=== PATIENT | male | born 1995 | race Caucasian/White ===

== ENCOUNTER 2016-08-31 16:07 | Emergency (ER) | payer SELFPAY ==
[~2016-08-31] VITALS: Ht 165.1 cm; Wt 61.3 kg
[2016-08-31 16:24] VITALS: BP 137/67; PULSE 60; RESP 18; TEMP 98.7; O2SAT 99
--- NOTE | 2016-08-31 16:30 | PD ---
HPI . Nail through the left index finger Chief Complaint: Injury Time Seen by Provider: 16:30 Travel History International Travel<30 days: No Contact w/Intl Traveler<30days: No Traveled to known affect area: No History of Present Illness HPI 20-year-old male who speaks Eritrean accompanied by his friend here with complaints of accidentally hammering a nail through his left index finger, while working on a roof. Patient admits to increased pain in that digit. He denies any other pain. He has no significant past medical history or other complaints. He does not have a primary care provider. Tetanus up to date, received last year per patient. [facility] Past Medical History Medical History: Denies Significant Hx Social History Tobacco Use: No Allergies-Medications (Allergen,Severity, Reaction): Coded Allergies: No Known Allergies (Unverified , 08/31/16) Reported Meds & Prescriptions Reported Meds & Active Scripts Active Bactrim DS (Sulfamethoxazole-Trimethoprim) 800-160 Mg Tab 1 Tab PO BID Review of Systems General / Constitutional: No: Fever Eyes: No: Visual changes HENT: No: Headaches Cardiovascular: No: Chest Pain or Discomfort Respiratory: No: Shortness of Breath Gastrointestinal: No: Abdominal Pain Genitourinary: No: Dysuria Musculoskeletal: Positive: Pain (left index ) Skin: No Rash Neurologic: No: Weakness Psychiatric: No: Depression Endocrine: No: Polydipsia Hematologic/Lymphatic: No: Easy Bruising Physical Exam Narrative GENERAL: AAO x 3, no acute distress, Well-nourished, well-developed patient. SKIN: Warm and dry. No visible rashes or bruising. Left index finger with appoximately 1 inch nail through the distal tuft, HEAD: Normocephalic and atraumatic. EYES: No scleral icterus. No injection or drainage. ENT: No nasal drainage noted. Mucous membranes pink. Airway patent. NECK: Supple, trachea midline. No JVD. CARDIOVASCULAR: Regular rate and rhythm without murmurs, gallops, or rubs. RESPIRATORY: Breath sounds equal bilaterally. No accessory muscle use. No rhonchi or rales. GASTROINTESTINAL: Abdomen soft, non-tender, nondistended. EXTREMITIES: No cyanosis or edema. Tenderness to the left index finger. BACK: Nontender without obvious deformity. No CVA tenderness. PSYCH: AAO x 3, normal affect. Consent given by patient. Area cleaned with betadine and saline solution. Nail removal from left distal finger. 2% lidocaine used to digitally block the index finger. Nail was removed using pliers and opposing force. Patient tolerated without incident. Data Data Last Documented VS Vital Signs Date Time Temp Pulse Resp B/P Pulse Ox O2 Delivery O2 Flow Rate FiO2 08/31/16 16:24 98.7 60 18 137/67 99 Orders Lidocaine 2% Inj (Xylocaine 2% Inj) (08/31/16 16:45) Hand, Complete ([id number]) (08/31/16 17:09) Wound Care (08/31/16 17:56) Splint Or Brace Apply/Monitor (08/31/16 17:56) Mandatory Outpatient Referral (08/31/16 18:11) Fiberglass Splint Forearm Adul (08/31/16 ) [facility] Medical Decision Making Medical Screen Exam Complete: Yes Emergency Medical Condition: Yes Medical Record Reviewed: Yes (no prior visit) Differential Diagnosis fb to finger, fracture, laceration Narrative Course 20-year-old male who speaks Eritrean accompanied by his friend here with complaints of accidentally hammering a nail through his left index finger, while working on a roof. Patient admits to increased pain in that digit. He denies any other pain. He has no significant past medical history or other complaints. He does not have a primary care provider. Patient seen and examined. I provided a digital block with 2% lidocaine. With assistance from the pipeline technician I was able to remove the nail from the distal tuft. Patient tolerated without incident. We will proceed with x-ray of the left hand. I have already discussed this case with Dr. Ascencio, who will follow the patient in his office. Wound was copiously irrigated and explored. Sterile dressing was applied. I will cover him with Bactrim. Patient was advised to f/u with Dr. Ascencio. Information provided to patient. Patient verbalized understanding of instructions, questions were answered, and thanked me for their care. I advised them if their condition worsens, please return to the nearest emergency room for further care. Procedures Procedure Narrative Consent given by patient. Area cleaned with betadine and saline solution. Nail removal from left distal finger. 2% lidocaine used to digitally block the index finger. Nail was removed using pliers and opposing force. Patient tolerated without incident. Diagnosis Primary Impression: Open fracture of distal phalangeal tuft with delayed healing Referrals: Lee Ann Ascencio MD Patient Instructions: Finger Fracture (ED), General Instructions Additional Instructions: Please return to emergency department if your symptoms return or worsen. Follow up with your primary care provider. Take medications as prescribed. You will need to follow-up with hand surgery. We have provided you with his information. His name is Doctor Lee Ann Ascencio. Please call his office for an appointment. If you do not follow up as recommended, you run the risk of infection, delayed healing and improper healing, and worse possibly losing this finger. Scripts Sulfamethoxazole-Trimethoprim (Bactrim DS)800-160 Mg Tab1 Tab PO BID #20 TAB Prov:Avelino Pham MD 08/31/16 Disposition: 01 DISCHARGE HOME Condition: Stable Nuzhat Ceballos Aug 31, 2016 16:30
[2016-08-31] MEDS ORDERED: LIDOCAINE HCL 2% 50 ML VIAL INFIL ONE (16:45)
[2016-08-31] MEDS ORDERED: BACT800T5 PO (17:14)
--- NOTE | 2016-08-31 17:33 | RADHPO ---
EXAM DATE/TIME: 08/31/2016 17:12 [facility] COMPARISON: No previous studies available for comparison. INDICATIONS : Post removal of js from left distal 2nd digit. MEDICAL HISTORY : None. SURGICAL HISTORY : None. ENCOUNTER: Initial ACUITY: 1 day PAIN SCORE: 2/10 LOCATION: Left distal 2nd digit FINDINGS: There is soft tissue swelling evident. Small hole was seen to the distal phalanx of the index finger . Fracture is not appreciated. CONCLUSION: Negative for fracture radiopaque foreign body. Juanpablo Lam MD FACR on August 31, 2016 at 17:30 Board Certified Radiologist. This report was verified electronically.
== END 2016-08-31 18:59 | disposition home or self-care (01) ==
LOC: PHEFT 16:07
DX: S62.631B Displaced fracture of distal phalanx of left index finger, initial encounter for open fracture (principal); W45.0XXA Nail entering through skin, initial encounter; Y92.008 Other place in unspecified non-institutional (private) residence as the place of occurrence of the external cause; Y99.0 Civilian activity done for income or pay
CPT/HCPCS: 29125; 64450; 73130